=== PATIENT | male | born 1940 | race Caucasian/White ===

== ENCOUNTER 2017-08-10 17:17 | Emergency (ER) | payer MEDICARE, OTHER ==
[~2017-08-10] VITALS: Ht 182.9 cm; Wt 100.0 kg
[~2017-08-10 17:17] MED LIST: BABY ASPIRIN81 MG PO; DETROL LA4 MG PO; EPIPEN 2-PAK0.3 MG IM; FLOMAX0.4 M1 PO; HCTZ PO; LEVOTHYROXIN175 MCG PO; LISINOPRIL10 MG PO; OMEPRAZOLE20 MG PO; SIMVASTATIN20 MG PO; [UNRECOGNIZED DRUG - OTHER] PO
[2017-08-10 18:26] LABS: HEMATOCRIT 43.1 % (39.0-50.0); HEMOGLOBIN 14.4 g/dl (14.0-18.0); IMMATURE GRANULOCYTES 0.4 % (0.0-1.0); MEAN CORPUSCULAR HGB 32.7 pG CALC (26.0-32.0); MEAN CORPUSCULAR HGB CONC 33.4 g/L CALC (32.0-36.0); NEUT# 6.13 thou/uL (1.82-7.42); RED BLOOD COUNT 4.4 mill/uL (4.70-6.10)
[2017-08-10 18:33] LABS: ALBUMIN 4.4 g/dL (3.2-5.0); ALKALINE PHOSPHATASE 62 u/l (38-126); ANION GAP 16 (6-22 (CALC)); BILIRUBIN, TOTAL 1.7 mg/dL (0.0-1.4); BUN 15 mg/dL (8-23); BUN/CREATININE RATIO 13 (12-20 (CALC)); CALCIUM 9.5 mg/dL (8.4-10.2); CARBON DIOXIDE 25 mmol/l (22-30); CHLORIDE 99 mmol/l (95-108); CREATININE 1.2 mg/dL (0.7-1.3); GFR 59 ML/MIN (>=60 (CALC)); GFR FOR AFR.AMER. > 60 ML/MIN (>=60 (CALC)); GLUCOSE 150 mg/dL (82-115); POTASSIUM 4.5 mmol/l (3.5-5.1); SGOT/AST 37 u/l (19-48); SGPT/ALT 41 u/l (11-66); SODIUM 136 mmol/l (137-146)
[2017-08-10] MEDS ORDERED: CIPROFLOXACN500 MG PO (19:58)
[2017-08-10 20:23] VITALS: BP 158/79
[2017-08-10 20:27] LABS: URINE BILIRUBIN - DIPSTICK NEGATIVE (NEGATIVE); URINE BLOOD DIPSTICK TRACE-LYSED (NEGATIVE); URINE CLARITY CLEAR; URINE COLOR YELLOW; URINE GLUCOSE - DIPSTICK NEGATIVE (NEGATIVE); URINE KETONE NEGATIVE (NEGATIVE); URINE LEUK ESTERASE NEGATIVE (NEGATIVE); URINE NITRITE - DIPSTICK NEGATIVE (Negative); URINE PH 5.5 (4.5-8.0); URINE PROTEIN - DIPSTICK TRACE mg/dL (NEG-TRACE); URINE SPECIFIC GRAVITY 1.025; URINE UROBILINOGEN - DIPSTICK 0.2 E.U./dL (0.2)
[2017-08-11] MEDS ORDERED: BACTRIM DS1 TAB PO (17:09)
[2017-08-11] MEDS ORDERED: SIMVASTATIN5 MG PO (17:32)
[2017-08-11] MEDS ORDERED: CIALIS2.5 MG PO (17:33)
[2017-08-11] MEDS ORDERED: CIPROFLOXACN500 MG PO (17:35)
== END 2017-08-10 20:47 | disposition home or self-care (01) ==
LOC: ED 17:17
PROVIDERS: Emergency Medicine
DX: B34.9 Viral infection, unspecified (principal); R50.9 Fever, unspecified; I10 Essential (primary) hypertension

== ENCOUNTER 2017-08-11 16:44 | Emergency (ER) | payer MEDICARE, OTHER ==
[~2017-08-11] VITALS: Ht 182.9 cm; Wt 100.0 kg
[~2017-08-11 16:44] MED LIST changes: +CIPROFLOXACN500 MG PO
[2017-08-11] MEDS ORDERED: BACTRIM DS1 TAB PO (17:09)
[2017-08-11] MEDS ORDERED: SIMVASTATIN5 MG PO (17:32)
[2017-08-11] MEDS ORDERED: CIALIS2.5 MG PO (17:33)
[2017-08-11] MEDS ORDERED: CIPROFLOXACN500 MG PO (17:35)
[2017-08-11 17:39] LABS: HEMOGLOBIN 13.2 g/dl (14.0-18.0); IMMATURE GRANULOCYTES 0.3 % (0.0-1.0); MEAN CELL VOLUME 96.8 fL CALC (80.0-100.0); MEAN CORPUSCULAR HGB 32.8 pG CALC (26.0-32.0); MEAN CORPUSCULAR HGB CONC 33.8 g/L CALC (32.0-36.0); NEUT# 4.38 thou/uL (1.82-7.42); RED BLOOD COUNT 4.03 mill/uL (4.70-6.10); RED CELL DISTRI WIDTH 12.9 % (11.5-15.5)
[2017-08-11 19:25] VITALS: BP 128/64
== END 2017-08-11 19:32 | disposition home or self-care (01) ==
LOC: ED 16:44
PROVIDERS: Emergency Medicine
DX: L03.313 Cellulitis of chest wall (principal); R50.9 Fever, unspecified